=== PATIENT | female | born 1945 | race Caucasian/White ===

== ENCOUNTER 2019-11-17 09:26 | Day surgery (SDC) | payer MEDICARE, BC ==
[~2019-11-17] VITALS: Ht 157.5 cm; Wt 74.4 kg
[~2019-11-17 09:26] MED LIST: ALLO100T PO; CITA20TA28 PO; HYDR28CR14 TP; LEVO50TA8 PO; LISI10TA4 PO; OMEP20CA15 PO; PRAV40TA3 PO; PRE0.625T PO
[2019-11-17 09:46] VITALS: BP 145/73
[2019-11-17] MEDS ORDERED: ESTR0.3T3 PO (10:23)
[2019-11-17] MEDS ORDERED: LISI40TA4 PO (10:23)
[2019-11-17] MEDS ORDERED: BUPR150T8 PO (10:33)
[2019-11-17] MEDS ORDERED: CARV-50 PO (10:33)
[2019-11-17] MEDS ORDERED: FOLI1TAB34 PO (10:33)
[2019-11-17] MEDS ORDERED: SEVE800T7 PO (10:33)
[2019-11-17] MEDS ORDERED: AMLO2.5T2 PO (10:33)
[2019-11-17 10:55] VITALS: BP 145/73
[2019-11-17 11:05] VITALS: BP 156/74
[2019-11-17 12:11] LABS: ALBUMIN,BODY FLUID 1.4 G/DL; GLUCOSE,BODY FLUID 117 MG/DL; LDH,BODY FLUID 74 U/L
[2019-11-17 12:30] LABS: BF RBC COUNT 288 /CU MM; BF WBC COUNT 313 /CU MM (0-1000); BFAPPEAR HAZY; BFCOLOR STRAW; BFVOLUME 50 ML
[2019-11-17 12:38] LABS: LYMPHOCYTES,BODY FLUID 74 %; MONOCYTES,BODY FLUID 7 %; NEUTROPHILS,BODY FLUID 19 %
[2019-11-17 12:39] LABS: BF MESOTHELIAL CELLS FEW
== END 2019-11-17 11:40 | disposition home or self-care (01) ==
LOC: SSTAY O 09:26
PROVIDERS: ATTEND Radiology Vascular & Interventional Radiology
DX: J90 Pleural effusion, not elsewhere classified (principal); M10.9 Gout, unspecified; F32.9 Major depressive disorder, single episode, unspecified; E03.9 Hypothyroidism, unspecified; K21.9 Gastro-esophageal reflux disease without esophagitis; E78.00 Pure hypercholesterolemia, unspecified; I12.9 Hypertensive chronic kidney disease with stage 1 through stage 4 chronic kidney disease, or unspecified chronic kidney disease; N18.9 Chronic kidney disease, unspecified; Z99.2 Dependence on renal dialysis; Z20.828 Contact with and (suspected) exposure to other viral communicable diseases; Z79.899 Other long term (current) drug therapy; Z90.710 Acquired absence of both cervix and uterus; Z82.49 Family history of ischemic heart disease and other diseases of the circulatory system
CPT/HCPCS: 32555; 36415; 71045; 82042; 82945; 83615; 87070; 87075; 87635; 89051

== ENCOUNTER 2019-12-07 09:23 | Day surgery (SDC) | payer MEDICARE, BC ==
[~2019-12-07] VITALS: Ht 157.5 cm; Wt 71.9 kg
[~2019-12-07 09:23] MED LIST changes: +AMLO2.5T2 PO; +BUPR150T8 PO; +CARV-50 PO; +ESTR0.3T3 PO; +FOLI1TAB34 PO; -HYDR28CR14 TP; -LISI10TA4 PO; +LISI40TA4 PO; -PRE0.625T PO; +SEVE800T7 PO
[2019-12-07] MEDS ORDERED: TRAM50TA2 PO (09:42)
[2019-12-07] MEDS ORDERED: albumin 25% 100mL bottle x 1 IV PRN (09:50)
[2019-12-07 09:55] VITALS: BP 128/59
[2019-12-07 10:53] VITALS: BP 141/83
[2019-12-07 11:08] VITALS: BP 131/65
[2019-12-07 11:23] VITALS: BP 151/70
[2019-12-07 11:45] VITALS: BP 159/79
[2019-12-07 12:00] VITALS: BP 147/67
[2019-12-07 12:42] LABS: LDH,BODY FLUID 69 U/L; TOTAL PROTEIN,BODY FLUID 2.6 G/DL
[2019-12-07 13:10] LABS: BASOPHILS,BODY FLUID 1 %; EOSINOPHILS,BODY FLUID 1 %; LYMPHOCYTES,BODY FLUID 77 %; MONOCYTES,BODY FLUID 6 %; NEUTROPHILS,BODY FLUID 15 %
[2019-12-07 13:15] LABS: BFAPPEAR CLEAR
[2019-12-07 13:16] LABS: BF RBC COUNT 665 /CU MM; BF WBC COUNT 213 /CU MM (0-1000); BFCOLOR YELLOW; BFVOLUME 1000 ML
== END 2019-12-07 12:10 | disposition home or self-care (01) ==
LOC: SSTAY O 09:23
PROVIDERS: ATTEND Radiology Vascular & Interventional Radiology
DX: J90 Pleural effusion, not elsewhere classified (principal); Z79.899 Other long term (current) drug therapy; Z90.710 Acquired absence of both cervix and uterus; Z82.49 Family history of ischemic heart disease and other diseases of the circulatory system; Z84.1 Family history of disorders of kidney and ureter
CPT/HCPCS: 32555; 71045; 83615; 84157; 87070; 89051

== ENCOUNTER 2019-12-28 08:36 | Day surgery (SDC) | payer MEDICARE, BC ==
[~2019-12-28] VITALS: Ht 157.5 cm; Wt 70.9 kg
[~2019-12-28 08:36] MED LIST changes: +TRAM50TA2 PO
[2019-12-28 08:48] VITALS: BP 157/79
[2019-12-28 10:18] VITALS: BP 157/79
[2019-12-28 10:21] VITALS: BP 157/88
[2019-12-28 10:31] VITALS: BP 164/75
== END 2019-12-28 11:50 | disposition home or self-care (01) ==
LOC: SSTAY O 08:36
PROVIDERS: ATTEND Radiology Diagnostic Radiology
DX: J90 Pleural effusion, not elsewhere classified (principal); Z20.828 Contact with and (suspected) exposure to other viral communicable diseases; M10.9 Gout, unspecified; F32.9 Major depressive disorder, single episode, unspecified; E03.9 Hypothyroidism, unspecified; K21.9 Gastro-esophageal reflux disease without esophagitis; I12.9 Hypertensive chronic kidney disease with stage 1 through stage 4 chronic kidney disease, or unspecified chronic kidney disease; N18.9 Chronic kidney disease, unspecified; E78.00 Pure hypercholesterolemia, unspecified; Z90.710 Acquired absence of both cervix and uterus; Z79.899 Other long term (current) drug therapy; Z99.2 Dependence on renal dialysis; Z82.49 Family history of ischemic heart disease and other diseases of the circulatory system; Z84.1 Family history of disorders of kidney and ureter
CPT/HCPCS: 32555; 36415; 71045; 87635

== ENCOUNTER 2020-07-15 09:06 | Day surgery (SDC) | payer MEDICARE, BC ==
[~2020-07-15] VITALS: Ht 157.5 cm; Wt 66.7 kg
[2020-07-15] VITALS (8 sets, daily range): BP systolic 121–153; BP diastolic 57–82
[~2020-07-15 09:06] MED LIST changes: +LISI40TA13 PO; -LISI40TA4 PO
[2020-07-15] MEDS ORDERED: albumin 25% 100mL bottle x 1 IV PRN (09:40)
== END 2020-07-15 11:43 | disposition home or self-care (01) ==
LOC: SSTAY O 09:06
PROVIDERS: ATTEND Radiology Vascular & Interventional Radiology
DX: J90 Pleural effusion, not elsewhere classified (principal); M10.9 Gout, unspecified; F32.9 Major depressive disorder, single episode, unspecified; E03.9 Hypothyroidism, unspecified; K21.9 Gastro-esophageal reflux disease without esophagitis; E78.00 Pure hypercholesterolemia, unspecified; I12.9 Hypertensive chronic kidney disease with stage 1 through stage 4 chronic kidney disease, or unspecified chronic kidney disease; N18.9 Chronic kidney disease, unspecified; Z79.899 Other long term (current) drug therapy; Z90.710 Acquired absence of both cervix and uterus; Z82.49 Family history of ischemic heart disease and other diseases of the circulatory system; Z84.1 Family history of disorders of kidney and ureter
CPT/HCPCS: 32555; 71045

== ENCOUNTER 2020-07-29 08:35 | Day surgery (SDC) | payer MEDICARE, BC ==
[~2020-07-29] VITALS: Ht 157.5 cm; Wt 66.5 kg
[2020-07-29 09:09] VITALS: BP 176/75
[2020-07-29] MEDS ORDERED: normal saline 1000ml 1,000 ML IV PRN (09:10)
[2020-07-29] MEDS ORDERED: albumin 25% 100mL bottle x 1 IV PRN (09:10)
[2020-07-29 10:00] VITALS: BP 144/76
[2020-07-29 10:15] VITALS: BP 170/67
[2020-07-29 10:30] VITALS: BP 142/97
[2020-07-29 10:45] VITALS: BP 164/76
== END 2020-07-29 10:50 | disposition home or self-care (01) ==
LOC: SSTAY O 08:35
PROVIDERS: ATTEND Radiology Vascular & Interventional Radiology
DX: J90 Pleural effusion, not elsewhere classified (principal); F32.9 Major depressive disorder, single episode, unspecified; E03.9 Hypothyroidism, unspecified; K21.9 Gastro-esophageal reflux disease without esophagitis; I12.9 Hypertensive chronic kidney disease with stage 1 through stage 4 chronic kidney disease, or unspecified chronic kidney disease; N18.9 Chronic kidney disease, unspecified; Z99.2 Dependence on renal dialysis; Z90.710 Acquired absence of both cervix and uterus; Z79.899 Other long term (current) drug therapy
CPT/HCPCS: 32555

== ENCOUNTER 2020-08-30 06:54 | Day surgery (SDC) | payer MEDICARE, BC ==
[~2020-08-30] VITALS: Ht 157.5 cm; Wt 64.7 kg
[~2020-08-30 06:54] MED LIST changes: -ESTR0.3T3 PO
[2020-08-30] MEDS ORDERED: albumin 25% 100mL bottle x 1 IV PRN (07:40)
[2020-08-30] MEDS ORDERED: ESTR0.3T3 PO (07:45)
[2020-08-30] MEDS ORDERED: CINA30TA2 PO (07:45)
[2020-08-30 07:47] VITALS: BP 154/66
[2020-08-30 08:48] VITALS: BP 134/50
[2020-08-30 09:03] VITALS: BP 139/54
[2020-08-30 09:18] VITALS: BP 131/64
[2020-08-30 09:36] VITALS: BP 145/65
[2020-08-30 09:40] LABS: PLEURAL FLUID PH 7.554 (7.63-7.65)
[2020-08-30 09:41] LABS: BFSOURCE RIGHT PLEURAL FLD
[2020-08-30 10:32] LABS: GLUCOSE,BODY FLUID 99 MG/DL; TOTAL PROTEIN,BODY FLUID 3.4 G/DL
[2020-08-30 11:06] LABS: EOSINOPHILS,BODY FLUID 14 %; LYMPHOCYTES,BODY FLUID 56 %; MONOCYTES,BODY FLUID 19 %; NEUTROPHILS,BODY FLUID 11 %
[2020-08-30 11:07] LABS: BF RBC COUNT 240 /CU MM; BF WBC COUNT 585 /CU MM (0-1000); BFAPPEAR HAZY; BFCOLOR YELLOW; BFVOLUME 60 ML
== END 2020-08-30 09:40 | disposition home or self-care (01) ==
LOC: SSTAY O 06:54
PROVIDERS: ATTEND Radiology Vascular & Interventional Radiology
DX: J90 Pleural effusion, not elsewhere classified (principal); M10.9 Gout, unspecified; F32.9 Major depressive disorder, single episode, unspecified; E03.9 Hypothyroidism, unspecified; K21.9 Gastro-esophageal reflux disease without esophagitis; E78.00 Pure hypercholesterolemia, unspecified; I12.9 Hypertensive chronic kidney disease with stage 1 through stage 4 chronic kidney disease, or unspecified chronic kidney disease; N18.9 Chronic kidney disease, unspecified; Z79.899 Other long term (current) drug therapy; Z99.2 Dependence on renal dialysis; Z90.710 Acquired absence of both cervix and uterus; Z82.49 Family history of ischemic heart disease and other diseases of the circulatory system; Z84.1 Family history of disorders of kidney and ureter
CPT/HCPCS: 32555; 82945; 83986; 84157; 87070; 89051